=== PATIENT | male | born 1995 | race Caucasian/White ===

== ENCOUNTER 2017-08-22 11:42 | Emergency (ER) | payer MEDICAID ==
[~2017-08-22] VITALS: Ht 185.4 cm; Wt 118.0 kg
[2017-08-22 11:46] VITALS: BP 159/84
== END 2017-08-22 13:05 | disposition home or self-care (01) ==
LOC: ER 11:42
DX: G89.29 Other chronic pain (principal); M79.672 Pain in left foot
CPT/HCPCS: 99283

== ENCOUNTER 2017-10-01 12:45 | Emergency (ER) | payer MEDICAID ==
[~2017-10-01] VITALS: Ht 182.9 cm; Wt 142.0 kg
[2017-10-01] MEDS ORDERED: IBUP-1984 PO (12:59)
[2017-10-01] MEDS ORDERED: LEVO750T21 PO (12:59)
[2017-10-01 13:11] VITALS: BP 158/97
== END 2017-10-01 13:13 | disposition home or self-care (01) ==
LOC: ER 12:46
DX: L03.115 Cellulitis of right lower limb (principal); Z79.899 Other long term (current) drug therapy
CPT/HCPCS: 99283